=== PATIENT | female | born 2000 | race African-American/Black ===

== ENCOUNTER 2019-05-08 17:57 | Emergency (ER) | payer OTHER ==
[2019-05-08 18:56] LABS: #Basophils 0.1 thou/uL (0.0-0.2); #Eosinphils 0.1 thou/uL (0.0-0.7); #Lymphocytes 2.4 thou/uL (1.20-3.40); #Monocytes 0.7 thou/uL (0.11-0.59); #Neutrophils 5.6 thou/uL (1.40-6.50); %Basophils 0.6 % (0.0-1.0); %Eosinophils 1.4 % (0.0-10.0); %Lymphocytes 27.5 % (21.0-51.0); %Monocytes 7.5 % (0.0-10.0); Hemoglobin 11.5 g/dL (12.0-16.0); Mean Corpuscular HGB CONC 34.2 g/dL (32.0-36.0); Mean Corpuscular Hemoglobin 31.6 pg (27.0-31.0); Mean Corpuscular Volume 92.4 fL (78.0-98.0); Mean Platelet Volume 6.6 fL (7.4-10.4); Platelet Count 340 thou/uL (130-400); RBC Distribution Width 11.4 % (11.5-14.5); Red Blood Cell (RBC) Count 3.63 mill/uL (4.20-5.40); White Blood Cell (WBC) Count 8.9 thou/uL (4.8-10.8)
[2019-05-08 19:20] LABS: ALT (SGPT) 24 U/L (8-55); AST (SGOT) 15 U/L (5-34); Alkaline Phosphatase 58 U/L (40-110); Anion Gap 12 mmol/L (10-20); BUN (Urea Nitrogen) 8 mg/dL (7.0-18.7); Bilirubin, Total 0.2 mg/dL (0.2-1.2); Calc. Creatinine Clearance 0 mL/min (70-130); Calcium 9.5 mg/dL (7.8-10.44); Carbon Dioxide 22 mmol/L (22-29); Chloride 107 mmol/L (98-107); Estimated GFR-MDRD Greater than 90; Glucose 89 mg/dL (70-105); Potassium 3.9 mmol/L (3.5-5.1); Sodium 137 mmol/L (136-145)
== END 2019-05-08 20:22 | disposition home or self-care (01) ==
LOC: ERS 17:57
DX: O99.89 Other specified diseases and conditions complicating pregnancy, childbirth and the puerperium (principal); R42 Dizziness and giddiness; O99.341 Other mental disorders complicating pregnancy, first trimester; F41.9 Anxiety disorder, unspecified; Z3A.09 9 weeks gestation of pregnancy
CPT/HCPCS: 80053; 85025; 93005; 96360

== ENCOUNTER 2019-11-19 16:55 | Day surgery (SDC) | payer OTHER ==
[2019-11-19 17:40] VITALS: BMI 45.1
[2019-11-19] MEDS ORDERED: hydrALAZINE 20 MG/ML VIAL SLOW IVP PRN (18:39)
[2019-11-19 19:06] LABS: Amnisure Test No Membranes Rupture (No Rupture)
[2019-11-19 19:07] LABS: Amnisure Internal Control QC ACCEPTABLE (ACCEPTABLE)
--- NOTE | 2019-11-19 20:21 | ER ---
DATE OF SERVICE: 11/19/2019 TIME OF SERVICE: 1935 hours. PRESENTING COMPLAINT: Possible rupture of membranes, 37 weeks' gestation. HISTORY OF PRESENT ILLNESS: Ms. Parada is a 19-year-old, 2, para 1, at 37 weeks and 0 days, EDC of 12/10/2019, previous spontaneous vaginal delivery x1, who sees myself at [facility]. She was seen in the office yesterday, had a pelvic exam and was noted to be 2, 70, and -2. She reports possible leakage of fluid today. Denies contractions. Reports an active fetus. GUITAR PLAYER HISTORY: Blood type O positive, antibody negative. Pap negative. Gonorrhea and chlamydia were both detected on our initial screen. She had group B strep positive urine and Trichomonas. She was treated for gonorrhea and chlamydia. Negative [id number] in July. PAST MEDICAL HISTORY: None. PAST SURGICAL HISTORY: Denies. ALLERGIES: PENICILLINS. MEDICATIONS: The patient has received ceftriaxone during the and Flagyl. She is currently taking vitamins. SOCIAL HISTORY: Denies tobacco, alcohol, or IV drug abuse. FAMILY HISTORY: Noncontributory. REVIEW OF SYSTEMS: Noncontributory. PHYSICAL EXAMINATION: GENERAL: Black female, obese, in no acute distress. VITAL SIGNS: Temperature 98.2, pulse 85, respirations 18, temperature 98.4. HEENT: Within normal limits. LUNGS: Clear to auscultation bilaterally. HEART: Regular rhythm. ABDOMEN: Soft and nontender. Fundal height 36. FHTs 140s. PELVIC: Vulva without lesions. Vagina without discharge. No pooling of fluid noted. Cervix; 2, 50, -2, cephalic, posterior, blots with ease. EXTREMITIES: Without clubbing, cyanosis, or edema. monitoring is carried out for greater than 30 minutes, revealed category 1 heart rate tracing. No contractions. Positive accelerations. No decelerations. AmniSure was performed, which was negative for rupture of membranes and was noted to be consistent with the patient's physical exam. IMPRESSION: Probable mucus plug passage at 37 weeks' gestation. No evidence of rupture of membranes. Group B strep positive. History of gonorrhea and chlamydia in early . PLAN: Discharge home. Keep scheduled followup with myself at [facility] in 1 week. Job ID: [id number]
== END 2019-11-19 19:30 | disposition home or self-care (01) ==
LOC: L&D/OP 16:55
PROVIDERS: ATTEND Obstetrics & Gynecology
DX: O99.89 Other specified diseases and conditions complicating pregnancy, childbirth and the puerperium (principal); N89.8 Other specified noninflammatory disorders of vagina; O99.213 Obesity complicating pregnancy, third trimester; E66.9 Obesity, unspecified; Z3A.37 37 weeks gestation of pregnancy
CPT/HCPCS: 84112

== ENCOUNTER 2019-11-24 05:57 | Day surgery (SDC) | payer OTHER ==
[2019-11-24 06:19] VITALS: BP 136/80; TEMP 98.2; BMI 45.1
[2019-11-24] MEDS ORDERED: hydrALAZINE 20 MG/ML VIAL SLOW IVP PRN (06:53)
--- NOTE | 2019-11-24 08:55 | PDOC.EVN ---
Event Note - Event Note Event Note: sve 0830 with no change. PT given term labor precautions. SHe has an appt today with her primary OB. Dr Kumar.
--- NOTE | 2019-11-24 22:10 | HP ---
LABOR AND DELIVERY TRIAGE NOTE: REGULAR PHYSICIAN: Brad Rodriguez MD EVALUATING PHYSICIAN: Dany Caldwell MD CHIEF COMPLAINT: Contractions at home. HISTORY OF PRESENT ILLNESS: Ms. Parada is a 19-year-old black, G2, P1-0-0-1, with an estimated date of confinement of 12/10/2019, who presents complaining of uterine contractions at home every 3 to 5 minutes prior to her arrival. She denies ruptured membranes or vaginal bleeding. Her care has been with Dr. Rodriguez without complications. PAST OBSTETRICAL HISTORY: One vaginal delivery at term. PAST MEDICAL HISTORY: None. PAST SURGICAL HISTORY: None. CURRENT MEDICATIONS: vitamins. ALLERGIES: PENICILLIN, WHICH SHE STATES GIVES HER A RASH, BUT SHE DOES STATE SHE HAS TAKEN PENICILLIN IN THIS WITHOUT DIFFICULTY. SOCIAL HISTORY: Denies tobacco, alcohol or drug use. FAMILY HISTORY: Unremarkable. REVIEW OF SYSTEMS: Denies nausea, vomiting, fever, chills, ruptured membranes or vaginal bleeding. PHYSICAL EXAMINATION: VITAL SIGNS: In triage, her vital signs are stable and she is afebrile. GENERAL: She is pleasant, in no acute distress. ABDOMEN: Soft, nontender, and gravid. PELVIC: Pelvic exam by labor nurse is 3 cm, dilated, 50% effaced with the vertex at the -1 station. heart rate tracing is reassuring with spontaneous accelerations. No decelerations are seen. Irregular uterine contractions are noted. ASSESSMENT: 1. 38-week intrauterine . 2. Rule out active labor. PLAN: The patient will be allowed to walk for 2 hours and be rechecked. I will review this patient with Dr. Avelar as he is coming in this morning. Job ID: [id number]
== END 2019-11-24 08:50 | disposition home health service (06) ==
LOC: L&D/OP 05:57
PROVIDERS: ATTEND Obstetrics & Gynecology
DX: O47.1 False labor at or after 37 completed weeks of gestation (principal); Z3A.38 38 weeks gestation of pregnancy; Z88.0 Allergy status to penicillin
CPT/HCPCS: 99283

== ENCOUNTER 2019-12-09 08:28 | Inpatient (IN) | payer OTHER ==
[2019-12-09] MEDS ORDERED: Lidocaine 1% (PF) 30 ML VIAL ONE (08:47)
[2019-12-09] MEDS ORDERED: NS / Oxytocin 40 units/1000ml 1,000 ML ONE (08:47)
[2019-12-09] MEDS ORDERED: NS / Oxytocin 40 units/1000ml 1,000 ML IV PRN (09:02)
[2019-12-09] MEDS ORDERED: HYDROcodone/Acetaminophen 5/325 mg Tablet PO PRN ×2 (09:02)
[2019-12-09] MEDS ORDERED: Butorphanol Tartrate 1 MG/ML VIAL SLOW IVP PRN (09:02)
[2019-12-09] MEDS ORDERED: Ondansetron PF 4 MG/2 ML Vial IVP PRN ×3 (09:02→12:30)
[2019-12-09] MEDS ORDERED: Ibuprofen 800 MG TAB PO PRN (09:02)
[2019-12-09] MEDS ORDERED: hydrALAZINE 20 MG/ML VIAL SLOW IVP PRN ×2 (09:02→12:30)
[2019-12-09] MEDS ORDERED: Promethazine HCl 25 MG/ML VIAL IM PRN ×2 (09:02→09:59)
[2019-12-09] MEDS ORDERED: Lidocaine 1% (PF) 30 ML VIAL SC PRN (09:02)
--- NOTE | 2019-12-09 09:08 | PDOC.BPN ---
- Brief Progress Note OBGYN call center analyst Asked to place courtesy orders for Dr ramsay. This is a direct admit to Dr Ramsay for active labor, 7cm. States GBS pos, PCN "rash" but no anaphylaxis. I have ordered ANCEF as ACOG protocol.
[2019-12-09] MEDS: Lactated Ringer's 1,000 ML IV SCH ×2 (09:09→10:05)
[2019-12-09] MEDS ORDERED: Fentanyl 4 mcg/Bup 0.1% Cadd 100 ML ONE (09:12)
[2019-12-09] MEDS ORDERED: Clindamycin/D5W 900 mg/50 ml Premix Bag ONE (09:16)
[2019-12-09 09:23] LABS: Hemoglobin 10.5 g/dL (12.0-16.0); Mean Corpuscular HGB CONC 32.7 g/dL (32.0-36.0); Mean Corpuscular Hemoglobin 29.8 pg (27.0-31.0); Mean Corpuscular Volume 91.2 fL (78.0-98.0); Mean Platelet Volume 7.6 fL (7.4-10.4); Platelet Count 317 thou/uL (130-400); RBC Distribution Width 11.9 % (11.5-14.5); Red Blood Cell (RBC) Count 3.51 mill/uL (4.20-5.40); White Blood Cell (WBC) Count 11.4 thou/uL (4.8-10.8)
[2019-12-09 09:55] VITALS: BMI 46.5
[2019-12-09] MEDS ORDERED: Naloxone HCl 0.4 mg/ml Vial IVP PRN ×2 (09:59)
[2019-12-09] MEDS ORDERED: Lactated Ringer's 500 ML IV PRN (09:59)
[2019-12-09] MEDS ORDERED: Acetaminophen 325 MG TAB PO PRN (09:59)
[2019-12-09] MEDS ORDERED: EPHEDRINE 25 MG/5 ML SYRINGE SLOW IVP PRN (09:59)
[2019-12-09] MEDS ORDERED: diphenhydrAMINE 50 MG/ML VIAL IVP PRN (09:59)
[2019-12-09] MEDS ORDERED: Communication Order-Pharmacy FS SCH (10:00)
[2019-12-09] MEDS ORDERED: Fentanyl 4 mcg/Bupivacaine 0.1% Cassette 100 ML EPIDURAL SCH (10:00)
[2019-12-09] MEDS ORDERED: CEFAZOLIN 2 GM in Premix Bag 1 BAG IVPB SCH (10:00)
[2019-12-09 10:07] LABS: Syphilis Antibody Nonreactive (Nonreactive); Syphilis Antibody Index 0.02 S/CO (<1.00 Non-Reactive)
[2019-12-09 10:08] LABS: HBSAg Index 0.15 S/CO (0-0.99); HIV (1/2) Antibody/Antigen Non-Reactive (NonReactive); HIV 1/2 INDEX 0.09 S/CO (<1.00); Hep B Surf Ag Non-Reactive S/CO (NonReactive); Hep C IgG Ab Non-Reactive (NonReactive); Hep C Index 0.12 S/CO (0-0.79)
--- NOTE | 2019-12-09 10:31 | PDOC.LDHP ---
Labor and Delivery H&P Chief complaint: contractions, loss of fluid HPI: 39 wk sool gbs positive Current gestational age (weeks): 39 Dating criteria: first trimester ultrasound Grav: 2 Para: 1 Current complications: none Abnormal US findings: No Current medications: pre-ryan vitamins Allergies/Adverse Reactions: Allergies Allergy/AdvReac Type Severity Reaction Status Date / Time Penicillins Allergy Intermediate Rash Verified 11/19/19 17:34 - Physical Exam Vital signs reviewed and normal: yes General: NAD, resting, breathing through contractions Heart: RRR Lungs: CTAB Abdomen: NTTP FHT: category 1 - Vaginal Exam cm dilated: 7 Effacement: 100% Station: 1+ - Assessment L&D Assessment: term patient in labor - Plan Plan: admit to L&D
--- NOTE | 2019-12-09 10:32 | PDOC.OPDEL ---
OB Operative/Delivery Note Delivery Dr/Surgeon: sobia rodgers Pre-Delivery Diagnosis: active labor Procedure/Post Delivery Dx: spontaneous vaginal delivery Weeks gestation: 39 Anesthesia: epidural - Findings A Sex: female - Additional Findings/Plan Placenta delivered: spontaneous Repaired Obstetrical Laceration: none Estimated blood loss: <100 Post delivery plan: routine recovery (delivery at 1021)
[2019-12-09] MEDS ORDERED: Milk Of Magnesia 30 ML UDCUP PO PRN (12:30)
[2019-12-09] MEDS ORDERED: NS / Oxytocin 40 units/1000ml 1,000 ML IV SCH (12:30)
[2019-12-09] MEDS ORDERED: Acetaminophen/Codeine 30-300mg Tablet PO PRN ×2 (12:30)
[2019-12-09] MEDS ORDERED: diphenhydrAMINE 25 MG CAP PO PRN (12:30)
[2019-12-09] MEDS ORDERED: Zolpidem Tartrate 5 MG TAB PO PRN (12:30)
[2019-12-09] MEDS ORDERED: Lanolin Ointment 7 GM TUBE TOP PRN (12:30)
[2019-12-09] MEDS ORDERED: Benzocaine-Menthol 82.5 ML CAN TOP PRN (12:30)
[2019-12-09] MEDS ORDERED: Bisacodyl 10 MG SUPP PR PRN (12:30)
[2019-12-09] MEDS: Ibuprofen 800 MG TAB PO SCH ×2 (13:55→22:28)
[2019-12-09] MEDS: Ferrous Sulfate 325 MG TAB PO SCH (16:34)
[2019-12-09] MEDS: Docusate Calcium (SURFAK) 240 MG CAP PO SCH (22:28)
[2019-12-10] MEDS: Ibuprofen 800 MG TAB PO SCH ×3 (06:19→22:49)
[2019-12-10] MEDS: Ferrous Sulfate 325 MG TAB PO SCH ×2 (07:46→18:04)
[2019-12-10] MEDS: Docusate Calcium (SURFAK) 240 MG CAP PO SCH ×2 (08:06→22:49)
[2019-12-10] MEDS: Prenatal Vitamin 1 TAB PO SCH (08:06)
[2019-12-10] MEDS ORDERED: Adacel (T-DAP) 0.5 ML SYRINGE IM ONE (09:00)
--- NOTE | 2019-12-10 09:40 | PDOC.PP ---
Post Progress Note Post Day #: 1 PO intake tolerated: yes Flatus: yes Ambulation: yes Vital Signs (12 hours) Temp Pulse Resp BP Pulse Ox 12/10/19 08:20 98.1 F 88 18 118/80 98 12/10/19 03:45 98.5 F 59 L 16 97/54 L 12/09/19 23:50 97.9 F 61 16 136/82 Weight Weight 288 lb - Physical Examination General: NAD Cardiovascular: no m/r/g, RRR Respiratory: clear to auscultation bilaterally, non-labored breathing Abdominal: lochia, no distention Extremities: negative homans (B) Neurological: no gross focal deficits Psychiatric: A&Ox3, normal affect Result Diagrams: 12/09/19 09:06 Additional Labs: Post Labs Blood Type O POSITIVE 12/09/19 09:06 Hep Bs Antigen Non-Reactive S/CO (NonReactive) 12/09/19 09:06 - Assessment/Plan routine care. gbs tx <4 hr. home tomorrow
[2019-12-11] MEDS: Ibuprofen 800 MG TAB PO SCH (06:28)
--- NOTE | 2019-12-11 07:02 | PDOC.PP ---
Post Progress Note Post Day #: 2 PO intake tolerated: yes Flatus: yes Ambulation: yes Vital Signs (12 hours) Temp Pulse Resp BP Pulse Ox 12/10/19 20:13 98.7 F 74 12 140/82 98 Weight Weight 288 lb - Physical Examination General: NAD Cardiovascular: no m/r/g, RRR Respiratory: clear to auscultation bilaterally, non-labored breathing Abdominal: + bowel sounds, lochia Extremities: negative homans (B) Psychiatric: A&Ox3, normal affect Result Diagrams: 12/09/19 09:06 Additional Labs: Post Labs Blood Type O POSITIVE 12/09/19 09:06 Hep Bs Antigen Non-Reactive S/CO (NonReactive) 12/09/19 09:06 - Assessment/Plan DC home
[2019-12-11 08:12] VITALS: BP 121/63; TEMP 98.2
[2019-12-11] MEDS: Prenatal Vitamin 1 TAB PO SCH (08:41)
[2019-12-11] MEDS: Docusate Calcium (SURFAK) 240 MG CAP PO SCH (08:41)
[2019-12-11] MEDS: Ferrous Sulfate 325 MG TAB PO SCH (10:29)
== END 2019-12-11 12:46 | disposition home or self-care (01) | DRG 807 ==
LOC: L&D/OP 08:28 → L&D-LIB 09:19 → 3SE 13:04
PROVIDERS: ADMIT Obstetrics & Gynecology; ATTEND Obstetrics & Gynecology
PROC: 10E0XZZ Delivery of Products of Conception, External Approach (ICD-10-PCS; principal; 2019-12-09)
DX: O99.824 Streptococcus B carrier state complicating childbirth (principal); Z37.0 Single live birth; L27.0 Generalized skin eruption due to drugs and medicaments taken internally; T36.0X5A Adverse effect of penicillins, initial encounter; O99.72 Diseases of the skin and subcutaneous tissue complicating childbirth; Z3A.39 39 weeks gestation of pregnancy
CPT/HCPCS: 85027; 86780; 86803; 86850; 86900; 86901; 87340; 87389; 99285; J2001; J2405; J3490

== ENCOUNTER 2022-09-23 10:24 | Emergency (ER) | payer OTHER ==
[2022-09-23] MEDS ORDERED: Acetaminophen 500 MG TAB ONE (11:02)
[2022-09-23 11:13] LABS: #Eosinphils 0.1 thou/uL (0.0-0.7); #Lymphocytes 1.6 thou/uL (1.20-3.40); #Monocytes 0.7 thou/uL (0.11-0.59); #Neutrophils 7.5 thou/uL (1.40-6.50); %Basophils 0.2 % (0.0-1.0); %Eosinophils 0.7 % (0.0-10.0); %Lymphocytes 16.1 % (21.0-51.0); %Monocytes 7.2 % (0.0-10.0); %Neutrophils 75.8 % (42.0-75.0); Hemoglobin 11.3 g/dL (12.0-16.0); Mean Corpuscular HGB CONC 33.3 g/dL (32.0-36.0); Mean Corpuscular Hemoglobin 31.8 pg (27.0-31.0); Mean Corpuscular Volume 95.5 fl (78.0-98.0); Platelet Count 313 10x3/uL (130-400); RBC Distribution Width 12.5 % (11.5-14.5); Red Blood Cell (RBC) Count 3.55 mill/uL (4.20-5.40); White Blood Cell (WBC) Count 9.9 10x3/uL (4.8-10.8)
[2022-09-23 11:32] LABS: BHCG - Serum Negative (NEGATIVE); Pregs Control Background? CLEAR/WHITE (CLR/WHITE); Pregs Control Bar Appear? YES (CONTROL BAR)
[2022-09-23 11:32] LABS: Bilirubin Negative (Negative); Blood, Urine Trace (Negative); Clarity Extra Turbid (Clear); Glucose, Urine (Dipstick) Normal (Negative); Ketone, Urine Negative (Negative); Leukocyte 500 Leu/uL (Negative); Nitrite Negative (Negative); Protein, Urine (Dipstick) 30 mg/dL (Neg-Trace); Specific Gravity, Urine 1.014 (1.002-1.036); Urobilinogen Normal mg/dL (Less than 2); WBC/HPF Greater than 50 HPF (0-3)
[2022-09-23 11:34] LABS: ALT (SGPT) Less than 7 U/L (8-55); AST (SGOT) 9 U/L (5-34); Albumin 3.6 g/dL (3.5-5.0); Alkaline Phosphatase 58 U/L (40-110); Anion Gap 12 mmol/L (10-20); BUN (Urea Nitrogen) 7 mg/dL (7.0-18.7); Bilirubin, Total 0.5 mg/dL (0.2-1.2); Calc. Creatinine Clearance 0 mL/min (70-130); Calcium 8.6 mg/dL (7.8-10.44); Carbon Dioxide 24 mmol/L (22-29); Chloride 108 mmol/L (98-107); Estimated GFR 105; Globulin 2.6 g/dL (2.4-3.5); Glucose 86 mg/dL (70-105); Lipase 11 U/L (8-78); Potassium 3.9 mmol/L (3.5-5.1); Protein, Total 6.2 g/dL (6.0-8.3); Sodium 140 mmol/L (136-145)
[2022-09-23 11:57] LABS: Bacteria/HPF 2+ HPF (None Seen)
== END 2022-09-23 13:02 | disposition home or self-care (01) ==
LOC: ERS 10:24
DX: N39.0 Urinary tract infection, site not specified (principal); R10.11 Right upper quadrant pain; F17.290 Nicotine dependence, other tobacco product, uncomplicated
CPT/HCPCS: 36415; 76705; 80053; 81003; 81015; 83690; 84703; 85025; 87077; 87086; 87186